=== PATIENT | female | born 1940 | race Caucasian/White ===

== ENCOUNTER 2018-03-25 18:19 | Emergency (ER) | payer MEDICARE, OTHER ==
[2018-03-25 18:27] VITALS: BMI 20.9
[2018-03-25 18:59] LABS: BASOPHILS % (AUTO) 0.7 % (0.2-1.0); EOSINOPHILS # (AUTO) 0.1 x10^3/uL (0.0-0.2); EOSINOPHILS % (AUTO) 1.3 % (0.9-2.9); HEMATOCRIT 39.4 % (36.0-47.0); HEMOGLOBIN 13.4 g/dL (12.0-16.0); LYMPHOCYTES # (AUTO) 1.9 X10^3/uL (1.3-2.9); LYMPHOCYTES % (AUTO) 33.5 % (21.0-51.0); MEAN CORPUSCULAR HGB CONC 34.1 g/dL (33.0-35.0); MEAN CORPUSCULAR VOLUME 85.2 fL (80.0-100.0); MEAN PLATELET VOLUME 8.6 fL (7.4-11.0); MONOCYTES # (AUTO) 0.5 x10^3/uL (0.3-0.8); MONOCYTES % (AUTO) 9.2 % (0.0-13.0); NEUTROPHILS # (AUTO) 3.2 x10^3/uL (2.2-4.8); NEUTROPHILS % (AUTO) 55.3 % (42.0-75.0); PLATELET COUNT 207 X10^3/uL (150.0-450.0); RED BLOOD COUNT 4.62 X10^6/uL (3.5-5.4); RED CELL DISTRIBUTION WIDTH 13.7 % (11.6-16.5); WHITE BLOOD COUNT 5.7 X10^3/uL (3.6-10.0)
[2018-03-25 19:01] LABS: BILIRUBIN,URINE NEGATIVE (NEGATIVE); BLOOD/HEMOGLOBIN,URINE 1+ (NEGATIVE); GLUCOSE, URINE NEGATIVE (NEGATIVE); KETONES,URINE NEGATIVE (NEGATIVE); LEUKOCYTE ESTERASE ,URINE NEGATIVE (NEGATIVE); NITRITES,URINE NEGATIVE (NEGATIVE); PH,URINE 6.5 (5.0 - 8.0); PROTEIN,URINE NEGATIVE (NEGATIVE); UROBILINOGEN,URINE NORMAL (NORMAL)
[2018-03-25 19:06] LABS: APPEARANCE,URINE CLEAR (CLEAR); COLOR,URINE YELLOW (YELLOW)
[2018-03-25 19:11] LABS: BACTERIA,URINE NEGATIVE /HPF (NEGATIVE); RBC,URINE 0-2 /HPF (NONE SEEN); SQUAMOUS EPITHELIAL CELL,UR NEGATIVE /HPF (NEGATIVE)
[2018-03-25 19:20] LABS: ALANINE AMINOTRANSFERASE 24 Units/L (12-78); ALBUMIN 3.6 g/dL (3.4-5.0); ALKALINE PHOSPHATASE 108 Units/L (46-116); ASPARTATE AMINO TRANSFERASE 27 Units/L (15-37); BLOOD ALCOHOL 3 mg/dL (0-19.9); BLOOD UREA NITROGEN 26 mg/dL (7-18); CALCIUM 8.8 mg/dL (8.5-10.1); CARBON DIOXIDE 31.3 mmol/L (21-32); CHLORIDE 100 mmol/L (98-107); CREATININE 1.31 mg/dL (0.55-1.02); SODIUM 139 mmol/L (136-145); TOTAL PROTEIN 7.3 g/dL (6.4-8.2); eGFR BLACK RACES 50 (>60); eGFR NON BLACK RACES 42 (>60)
[2018-03-25 19:37] LABS: SALICYLATE < 2.8 mg/dL (2.8-20)
--- NOTE | 2018-03-25 21:12 | DR.GENAD ---
HPI - PCP Primary Care Physician: NFD - Complaint/Symptoms Chief Complaint Doctors Comments: patient reports that she wants to kill herselp she can not turn her brain off from thinking. She has stopped taking her prescribed medication for alzheimer, blood pressure and others. Chief Complaint:: PT STATES" I JUST LOST ALL CONTROL OF MYSELF. I CAN'T TURN MY MIND OFF I WANT TO KILL MYSELF" PT HAS A PLAN TO SHOT HERSELF IN THE HEAD - Source History Provided: Patient - Mode of Arrival Mode of Arrival: Ambulatory - Timing Onset of Chief Complaint: 03/22/18 PMH - PMH Past Medical History: Yes Past Medical History: Dementia, Hypertension, Hypothyroidism Past Surgical History: Yes Surgical History: Hysterectomy - Family History History of Family Medical Conditions: No - Social History Lives With: Alone Lives Where: Home - infectious screening In the last 2 months have you had wt loss of >10#?: NO Have you had fever, night sweats or hemotysis?: No Have you traveled outside the country in the last 6 months?: No Isolation: Standard ROS - Review of Systems Eyes: No Symptoms Reported ENTM: No Symptoms Reported Respiratoy: No Symptoms Reported Cardiovascular: No Symptoms Reported Gastrointestinal/Abdominal: No Symptoms Reported Genitourinary: No Symptoms Reported Neurological: No Symptoms Reported Musculoskeletal: No Symptoms Reported Integumentary: No Symptoms Reported Hematologic/Lymphatic: No Symptoms Reported Endocrine: No Symptoms Reported Psychiatric: No Symptoms Reported All Other Systems: Reviewed and Negative PE - Vital Signs Vitals: Temperature 98 F Pulse Rate 64 Respiratory Rate 18 Blood Pressure 179/83 O2 Sat by Pulse Oximetry 98 - General General Appearance: Alert, In No Apparent Distress, Anxious - Head Head Exam: Normal Inspection, Atraumatic - Eyes Eye exam: Normal Appearance, PERRL, EOMI - ENT ENT Exam: Normal Exam, Normal Oropharynx External Ear Exam: Normal External Inspection TM/Canal Exam: Bilateral Normal Nose Exam: Normal Nose Exam Mouth Exam: Normal Inspection Throat Exam: Normal Inspection - Neck Neck Exam: Normal Inspection, Full ROM - Chest Chest Inspection: Normal Inspection - Respiratory Respiratory Exam: Normal Lung Sounds Bilat Respiratory Exam: Bilateral Clear to Auscultation - Cardiovascular Cardiovascular Exam: Regular Rate - Abdominal Exam Abdominal Exam: Normal Inspection Abdominal Tenderness: negative: RUQ, RLQ, LUQ, LLQ, Epigastrium, Suprapubic, Diffuse, Mild, Moderate, Severe, Other - Extremities Extremities Exam: Normal Inspection, Full ROM - Back Back Exam: Normal Inspection, Full ROM - Neurologic Neurological Exam: Alert, Oriented X3, CN II-XII Intact - Psychiatric Psychiatric Exam: Normal Affect, Depressed, Flat Affect - Skin Skin Exam: Warm, Dry, Intact ROR - Labs Reviewed Result Diagrams: 03/25/18 18:50 03/25/18 18:50 Laboratory: WBC 5.7 X10^3/uL (3.6-10.0) 03/25/18 18:50 RBC 4.62 X10^6/uL (3.5-5.4) 03/25/18 18:50 Hgb 13.4 g/dL (12.0-16.0) 03/25/18 18:50 Hct 39.4 % (36.0-47.0) 03/25/18 18:50 MCV 85.2 fL (80.0-100.0) 03/25/18 18:50 MCH 29.0 pg (27.0-34.0) 03/25/18 18:50 MCHC 34.1 g/dL (33.0-35.0) 03/25/18 18:50 RDW 13.7 % (11.6-16.5) 03/25/18 18:50 Plt Count 207 X10^3/uL (150.0-450.0) 03/25/18 18:50 MPV 8.6 fL (7.4-11.0) 03/25/18 18:50 Neut % (Auto) 55.3 % (42.0-75.0) 03/25/18 18:50 Lymph % (Auto) 33.5 % (21.0-51.0) 03/25/18 18:50 [place] % (Auto) 9.2 % (0.0-13.0) 03/25/18 18:50 Eos % (Auto) 1.3 % (0.9-2.9) 03/25/18 18:50 Baso % (Auto) 0.7 % (0.2-1.0) 03/25/18 18:50 Neut # (Auto) 3.2 x10^3/uL (2.2-4.8) 03/25/18 18:50 Lymph # (Auto) 1.9 X10^3/uL (1.3-2.9) 03/25/18 18:50 [place] # (Auto) 0.5 x10^3/uL (0.3-0.8) 03/25/18 18:50 Eos # (Auto) 0.1 x10^3/uL (0.0-0.2) 03/25/18 18:50 Baso # (Auto) 0.0 X10^3/uL (0.0-0.1) 03/25/18 18:50 Absolute Nucleated RBC 0.0 /100WBC 03/25/18 18:50 Sodium 139 mmol/L (136-145) 03/25/18 18:50 Corrected Sodium TNP 03/25/18 18:50 Potassium 5.1 mmol/L (3.5-5.1) 03/25/18 18:50 Chloride 100 mmol/L (98-107) 03/25/18 18:50 Carbon Dioxide 31.3 mmol/L (21-32) 03/25/18 18:50 BUN 26 mg/dL (7-18) H 03/25/18 18:50 Creatinine 1.31 mg/dL (0.55-1.02) H 03/25/18 18:50 Est GFR (MDRD) Af Amer 50 (>60) L 03/25/18 18:50 Est GFR (MDRD) Non-Af 42 (>60) L 03/25/18 18:50 Glucose 100 mg/dL (65-99) H 03/25/18 18:50 Calcium 8.8 mg/dL (8.5-10.1) 03/25/18 18:50 Corrected Calcium TNP 03/25/18 18:50 Total Bilirubin 0.50 mg/dL (0.2-1.0) 03/25/18 18:50 AST 27 Units/L (15-37) 03/25/18 18:50 ALT 24 Units/L (12-78) 03/25/18 18:50 Alkaline Phosphatase 108 Units/L (46-116) 03/25/18 18:50 Total Protein 7.3 g/dL (6.4-8.2) 03/25/18 18:50 Albumin 3.6 g/dL (3.4-5.0) 03/25/18 18:50 Globulin 3.7 g/dL (2.5-4.5) 03/25/18 18:50 Albumin/Globulin Ratio 1.0 Ratio (1.1-2.1) L 03/25/18 18:50 TSH 3rd Generation 1.878 uIU/mL (0.358-3.74) 03/25/18 18:50 Specimen Type Clean catch urine 03/25/18 18:45 Urine Color Yellow (YELLOW) 03/25/18 18:45 Urine Appearance Clear (CLEAR) 03/25/18 18:45 Urine pH 6.5 (5.0 - 8.0) 03/25/18 18:45 Ur Specific [place] 1.010 (1.000-1.030) 03/25/18 18:45 Urine Protein Negative (NEGATIVE) 03/25/18 18:45 Urine Glucose (UA) Negative (NEGATIVE) 03/25/18 18:45 Urine Ketones Negative (NEGATIVE) 03/25/18 18:45 Urine Occult Blood 1+ (NEGATIVE) 03/25/18 18:45 Urine Nitrite Negative (NEGATIVE) 03/25/18 18:45 Urine Bilirubin Negative (NEGATIVE) 03/25/18 18:45 Urine Urobilinogen Normal (NORMAL) 03/25/18 18:45 Ur Leukocyte Esterase Negative (NEGATIVE) 03/25/18 18:45 Urine RBC 0-2 /HPF (NONE SEEN) 03/25/18 18:45 Urine WBC None seen /HPF (NONE SEEN) 03/25/18 18:45 Ur Squamous Epith Cells Negative /HPF (NEGATIVE) 03/25/18 18:45 Urine Bacteria Negative /HPF (NEGATIVE) 03/25/18 18:45 Ur Culture Indicated? No/not indicated 03/25/18 18:45 Salicylates < 2.8 mg/dL (2.8-20) L 03/25/18 18:50 Urine Opiates Screen Negative (NEG=<300) 03/25/18 18:45 Urine Methadone Screen Negative (NEG=<300) 03/25/18 18:45 Acetaminophen 0.0 ug/mL (10-30) L 03/25/18 18:50 Ur Barbiturates Screen Negative (NEG=<200) 03/25/18 18:45 Ur Phencyclidine Scrn Negative (NEG=<25) 03/25/18 18:45 Ur Amphetamines Screen Negative (NEG=<1000) 03/25/18 18:45 U Benzodiazepines Scrn Negative (NEG=<200) 03/25/18 18:45 Urine Cocaine Screen Negative (NEG=<300) 03/25/18 18:45 U Marijuana (THC) Screen Negative (NEG=<50) 03/25/18 18:45 Ethyl Alcohol mg/dL 3 mg/dL (0-19.9) 03/25/18 18:50 - Diagnosis Discharge Problem: Suicidal ideation, Medically suitable for court appearance - Discharge Plan Condition: Stable - Follow ups/Referrals Follow ups/Referrals: NFD,None [Primary Care Provider] - 3 days - Instructions Instructions: Suicidal Feelings: How to Help Yourself
[2018-03-25] MEDS ORDERED: HALDOL INJ IM ONE (21:25)
[2018-03-25] MEDS ORDERED: HALDOL INJ ONE (21:27)
[2018-03-26] MEDS ORDERED: HALDOL INJ IM ONE ×3 (05:24→15:52)
[2018-03-26] MEDS ORDERED: HALDOL INJ ONE ×3 (05:26→15:53)
[2018-03-26] MEDS ORDERED: LOMOTIL PO ONE (10:01)
[2018-03-26 17:28] VITALS: BP 173/77
== END 2018-03-26 19:18 ==
LOC: ER 18:40
DX: R45.851 Suicidal ideations (principal); Z86.59 Personal history of other mental and behavioral disorders
CPT/HCPCS: 36415; 80053; 80307; 81001; 84443; 85025; 96372; 99282; 99285; G0434; G6038; G6039; G6040; J1630